=== PATIENT | male | born 1995 | race Two or more races ===

== ENCOUNTER 2020-07-17 21:48 | Emergency (ER) | payer MEDICAID, OTHER ==
[~2020-07-17] VITALS: Ht 175.3 cm; Wt 65.8 kg
--- NOTE | 2020-07-17 21:52 | NUR ---
URINE COLLECTED, CALLED LAB FOR SKILL LABOR
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
--- NOTE | 2020-07-17 22:16 | NUR ---
PT PLACED ON 5150 DTS BY GIULIANA
[2020-07-17 22:36] LABS: BASOPHILS % (AUTO) 0.6 % (0.0-2.0); EOSINOPHILS % (AUTO) 1.2 % (0.0-6.0); HEMATOCRIT 42 % (39-51); LYMPHOCYTES # (AUTO) 1.5 /CMM (0.8-4.8); LYMPHOCYTES % (AUTO) 20.1 % (20.0-44.0); MEAN CORPUSCULAR HGB CONC 34 g/dl (31.0-36.0); MEAN CORPUSCULAR VOLUME 88 fL (80-96); MONOCYTES # (AUTO) 0.4 /CMM (0.1-1.30); MONOCYTES % (AUTO) 5.5 % (2.0-12.0); NEUTROPHILS # (AUTO) 5.3 /CMM (1.8-8.9); NEUTROPHILS % (AUTO) 72.6 % (43.0-81.0); PLATELET COUNT (AUTO) 313 /CMM (150-450); RED BLOOD CELL COUNT(AUTO) 4.73 MIL/uL (4.5-6.0); WHITE BLOOD COUNT (AUTO) 7.4 K/uL (4.3-11.0)
[2020-07-17 22:39] LABS: BILIRUBIN,URINE Negative (NEGATIVE); COLOR,URINE YELLOW (YELLOW); LEUKOCYTE ESTERASE ,URINE Negative (NEGATIVE); NITRITE, URINE Negative (NEGATIVE); PH,URINE 6.5 (5.0-8.0); PROTEIN,URINE Negative (NEGATIVE); UGLUCOSE Negative (NEGATIVE); UROBILINOGEN,URINE 0.2 EU/dL (0.2)
[2020-07-17 22:43] LABS: CALCIUM, SERUM 8.6 mg/dL (8.5-10.1); CARBON DIOXIDE 23 mmol/L (21-32); CHLORIDE 102 mmol/L (98-107); CREATININE 1.1 mg/dL (0.6-1.3); GLUCOSE 128 mg/dL (74-106); POTASSIUM 3.5 mmol/L (3.5-5.1); SODIUM SERUM 137 mmol/L (136-145); UREA NITROGEN, BLOOD 13 mg/dL (7-18)
[2020-07-17 22:49] LABS: ALANINE AMINOTRANSFERASE 35 U/L (12-78); ALBUMIN 3.7 g/dL (3.4-5.0); ALCOHOL, BLOOD < 3 mg/dL (0-0); ALKALINE PHOSPHATASE 109 U/L (46-116); ASPARTATE AMINOTRANSFERASE 24 U/L (15-37); BILIRUBIN,DIRECT 0.1 mg/dL (0.0-0.2); BILIRUBIN,TOTAL 0.4 mg/dL (0.2-1.0); TOTAL PROTEIN, SERUM 7.4 g/dL (6.4-8.2)
[2020-07-17 22:52] LABS: ACETAMINOPHEN < 2 ug/ml (10-30)
--- NOTE | 2020-07-17 23:57 | NUR ---
COVID NEGATIVE PER LAB
--- NOTE | 2020-07-18 04:15 | NUR ---
FILTER BED PLACER LESLY BOOTH AT BEDSIDE FOR EVALAUTION
--- NOTE | 2020-07-18 05:28 | NUR ---
SPOKE WITH DOMINGO FROM [facility], REQUESTING FOR COVID PCR FOR PLACEMENT
--- NOTE | 2020-07-18 08:18 | NUR ---
FAXED CLINICALS TO [facility].
--- NOTE | 2020-07-18 14:02 | NUR ---
CALLED [facility] AND SPOKE TO KOLE. AT THE MOMENT THEY ARE STILL LOOKING FOR BED FOR THIS PATIENT. NO ETA. WILL CALL BACK WITH ANY UPDATES.
--- NOTE | 2020-07-18 17:42 | NUR ---
ASSESSED PT ON BED AWAKE AND ALERT, NOT IN RESPIRATORY DISTRESS, V/S STABLE, KEPT RESTED AND COMFORTABLE. WILL CONTINUE TO MONITOR.
--- NOTE | 2020-07-18 20:35 | NUR ---
PT RESTING COMFORTABLY IN BED, CALM AND COOPERATIVE. VITAL SIGNS STABLE. RESPIRATIONS EVEN AND UNLABORED. SITTER AT BEDSIDE. WILL CONTINUE TO MONITOR
[2020-07-19] MEDS ORDERED: HALOPERIDOL 5 MG TABLET ONE (00:28)
[2020-07-19] MEDS ORDERED: LORAZEPAM 1 MG TABLET ONE ×2 (00:28→17:37)
[2020-07-19] MEDS ORDERED: LORAZEPAM 1 MG TABLET PO ONE ×2 (00:30→18:00)
[2020-07-19] MEDS ORDERED: HALOPERIDOL 1 MG TABLET PO ONE (00:30)
--- NOTE | 2020-07-19 09:00 | NUR ---
PATIENT A/OX3, BREATHINGE BRAYDON AND UNLABORED, NO SOB NOTED. CALM AND COOPERATIVE. WATCHING TV.
--- NOTE | 2020-07-19 11:50 | NUR ---
SW follow up and called [facility] to verify bed availability. No answer, SW left voicemail. SW will follow up accordingly.
--- NOTE | 2020-07-19 12:05 | NUR ---
SW received a call from Constance at [facility] stating that they have referred the patient to various locations ([facility], [facility], [facility] etc.) for placement and bed availability is scarce at the moment. Constance stated she will notify ED or SW if any beds become available. Noted.
--- NOTE | 2020-07-19 16:16 | NUR ---
CALLED KRISTIE CHRISTIANSEN LCSW AND STATED PATIENT'S HOLD WILL ARLENE. SHE STATED TO CALL [facility] AND TO FOLLOW UP WITH THE PATIENT'S HOLD AND PLAN.
--- NOTE | 2020-07-19 16:32 | NUR ---
JENN BOOTH TO CALL MIKEY FROM [facility] [phone]
--- NOTE | 2020-07-19 18:45 | NUR ---
LE[facility]ARDO NOWAK CAME AND RE-EVALUATED PATIENT, BROKE THE HOLD. INFORMED DR. PAYTON PATIENT CAN BE DISCHARGED AFTER MEDICATED.
--- NOTE | 2020-07-19 19:53 | NUR ---
Patient discharged to home in stable condition. Written and verbal after care instructions given. Patient verbalizes understanding of instruction.
[2020-07-19 20:35] VITALS: BP 128/79
== END 2020-07-19 20:35 | disposition home or self-care (01) ==
LOC: ER 21:50 → EDBD 21:50 → ER 07-19 20:35
DX: R45.851 Suicidal ideations (principal); F91.8 Other conduct disorders; F19.10 Other psychoactive substance abuse, uncomplicated; Z20.822 Contact with and (suspected) exposure to COVID-19
CPT/HCPCS: 36415; 80048; 80076; 80299; 80307; 80320; 81003; 85025; 87426; 99285; C9803; G0480